=== PATIENT | female | born 1970 | race Asian ===

== ENCOUNTER → 2016-10-16 | Outpatient (CLI) | payer OTHER ==
[2016-10-16 13:01] LABS: BLOOD UREA NITROGEN 13 mg/dL (7-18)
[2016-10-16 13:04] LABS: ASPARTATE AMINO TRANSFERASE 23 U/L (15-37)
== END | disposition home or self-care (01) ==
LOC: CFH 07:57
PROVIDERS: ATTEND Internal Medicine Endocrinology, Diabetes & Metabolism
DX: E03.9 Hypothyroidism, unspecified (principal); E21.3 Hyperparathyroidism, unspecified; R74.8 Abnormal levels of other serum enzymes; K30 Functional dyspepsia
CPT/HCPCS: 36415; 80053

== ENCOUNTER → 2016-11-27 | Outpatient (CLI) | payer OTHER ==
[2016-11-27 12:51] LABS: BLOOD UREA NITROGEN 12 mg/dL (7-18)
[2016-11-27 12:54] LABS: ASPARTATE AMINO TRANSFERASE 17 U/L (15-37)
== END | disposition home or self-care (01) ==
LOC: CFH 07:47
PROVIDERS: ATTEND Internal Medicine Endocrinology, Diabetes & Metabolism
DX: E03.9 Hypothyroidism, unspecified (principal); E21.3 Hyperparathyroidism, unspecified; K30 Functional dyspepsia; R74.8 Abnormal levels of other serum enzymes
CPT/HCPCS: 36415; 80053; 82310; 82570; 83945; 83970; 84100; 84105

== ENCOUNTER → 2017-02-06 | Outpatient (CLI) | payer OTHER ==
[2017-02-06 15:51] LABS: ASPARTATE AMINO TRANSFERASE 17 U/L (15-37); BLOOD UREA NITROGEN 12 mg/dL (7-18)
== END | disposition home or self-care (01) ==
LOC: LAB 14:51
PROVIDERS: ATTEND Internal Medicine Endocrinology, Diabetes & Metabolism
DX: E03.9 Hypothyroidism, unspecified (principal); K30 Functional dyspepsia; E21.3 Hyperparathyroidism, unspecified; R74.8 Abnormal levels of other serum enzymes
CPT/HCPCS: 36415; 80053; 82523; 83970

== ENCOUNTER → 2017-02-20 | Outpatient (CLI) | payer OTHER ==
[2017-02-20 13:09] LABS: C-REACTIVE PROTEIN, QUANT 0.04 mg/dL (0.02-0.49)
[2017-02-22 10:52] LABS: RHEUMATOID FACTOR SCREEN NEGATIVE (NEGATIVE)
== END | disposition home or self-care (01) ==
LOC: CFH 08:17
PROVIDERS: ATTEND Family Medicine
DX: E78.5 Hyperlipidemia, unspecified (principal); E55.9 Vitamin D deficiency, unspecified; G43.909 Migraine, unspecified, not intractable, without status migrainosus; M06.9 Rheumatoid arthritis, unspecified
CPT/HCPCS: 36415; 80061; 82306; 85651; 86140; 86430

== ENCOUNTER → 2017-04-23 | Outpatient (CLI) | payer OTHER | END | disposition home or self-care (01) | LOC: CFH 10:27 | PROVIDERS: ATTEND Obstetrics & Gynecology | DX: Z12.31 Encounter for screening mammogram for malignant neoplasm of breast (principal) | CPT/HCPCS: 77063; G0202 ==

== ENCOUNTER → 2018-03-06 | Outpatient (CLI) | payer OTHER | END | disposition home or self-care (01) | LOC: CFH 07:34 | PROVIDERS: ATTEND Internal Medicine Gastroenterology | DX: K80.20 Calculus of gallbladder without cholecystitis without obstruction (principal); B18.1 Chronic viral hepatitis B without delta-agent; E21.3 Hyperparathyroidism, unspecified; E03.9 Hypothyroidism, unspecified; Z85.038 Personal history of other malignant neoplasm of large intestine | CPT/HCPCS: 76700 ==

== ENCOUNTER → 2018-04-15 | Outpatient (CLI) | payer OTHER | END | disposition home or self-care (01) | LOC: CFH 11:17 | PROVIDERS: ATTEND Specialist | DX: Z13.820 Encounter for screening for osteoporosis (principal); M81.0 Age-related osteoporosis without current pathological fracture | CPT/HCPCS: 77080 ==

== ENCOUNTER → 2018-05-02 | Outpatient (CLI) | payer OTHER | END | disposition home or self-care (01) | LOC: CFH 10:54 | PROVIDERS: ATTEND Obstetrics & Gynecology | DX: Z12.31 Encounter for screening mammogram for malignant neoplasm of breast (principal); Z83.3 Family history of diabetes mellitus; Z85.038 Personal history of other malignant neoplasm of large intestine | CPT/HCPCS: 77067 ==

== ENCOUNTER → 2018-08-12 | Outpatient (CLI) | payer OTHER ==
[2018-08-12 14:47] LABS: ALBUMIN 4.1 g/dL (3.4-5.0)
[2018-08-12 15:08] LABS: BILIRUBIN, DIRECT 0.1 mg/dL (0.1-0.2); BILIRUBIN,INDIRECT 0.3 mg/dL (0.0-2.0); BILIRUBIN,TOTAL 0.4 mg/dL (0.2-1.0); TOTAL PROTEIN 8.3 g/dL (6.4-8.2)
== END | disposition home or self-care (01) ==
LOC: CFH 14:07
PROVIDERS: ATTEND Internal Medicine Gastroenterology
DX: E03.9 Hypothyroidism, unspecified (principal); E05.00 Thyrotoxicosis with diffuse goiter without thyrotoxic crisis or storm; E21.3 Hyperparathyroidism, unspecified; D56.8 Other thalassemias; B18.1 Chronic viral hepatitis B without delta-agent; R74.8 Abnormal levels of other serum enzymes; C19 Malignant neoplasm of rectosigmoid junction
CPT/HCPCS: 36415; 80076; 82105; 82977

== ENCOUNTER → 2018-09-02 | Outpatient (CLI) | payer OTHER | END | disposition home or self-care (01) | LOC: CFH 08:18 | PROVIDERS: ATTEND Internal Medicine Gastroenterology | DX: K80.20 Calculus of gallbladder without cholecystitis without obstruction (principal); B18.1 Chronic viral hepatitis B without delta-agent; R74.8 Abnormal levels of other serum enzymes; D56.8 Other thalassemias; E03.9 Hypothyroidism, unspecified; E05.00 Thyrotoxicosis with diffuse goiter without thyrotoxic crisis or storm; E21.3 Hyperparathyroidism, unspecified; Z85.038 Personal history of other malignant neoplasm of large intestine | CPT/HCPCS: 76705 ==

== ENCOUNTER 2019-05-16 10:28 | Outpatient (CLI) | payer OTHER | END 2019-05-16 23:59 | disposition home or self-care (01) | LOC: CFH 10:28 | PROVIDERS: ATTEND Physician Assistant | DX: Z12.31 Encounter for screening mammogram for malignant neoplasm of breast (principal); N64.89 Other specified disorders of breast; M81.0 Age-related osteoporosis without current pathological fracture; I10 Essential (primary) hypertension; E11.9 Type 2 diabetes mellitus without complications; K21.9 Gastro-esophageal reflux disease without esophagitis; Z80.3 Family history of malignant neoplasm of breast; Z85.038 Personal history of other malignant neoplasm of large intestine | CPT/HCPCS: 77063; 77067 ==

== ENCOUNTER → 2019-06-06 | Outpatient (CLI) | payer OTHER | END | disposition home or self-care (01) | LOC: CFH 10:37 | PROVIDERS: ATTEND Physician Assistant | DX: Z80.3 Family history of malignant neoplasm of breast (principal) | CPT/HCPCS: 76641 ==